=== PATIENT | male | born 1940 | race Caucasian/White ===

== ENCOUNTER 2021-01-14 20:45 | Emergency (ER) | payer OTHER, MEDICARE ==
[2021-01-14 20:56] VITALS: BP 151/90; PULSE 61; TEMP 98.1; BMI 23.8
== END 2021-01-14 21:10 | disposition home or self-care (01) ==
LOC: FER 20:45
DX: S61.412A Laceration without foreign body of left hand, initial encounter (principal); W25.XXXA Contact with sharp glass, initial encounter; Y92.9 Unspecified place or not applicable
CPT/HCPCS: 99283-25

== ENCOUNTER 2023-09-16 12:45 | Emergency (ER) | payer OTHER, MEDICARE ==
[2023-09-16 12:58] VITALS: BP 133/71; PULSE 75; RESP 20; TEMP 97.8; BMI 23.6
[2023-09-16] MEDS ORDERED: DIPHTH,PERTUSS(ACELL),TET 0.5 ML DISP.SYRIN IM ONE (14:58)
[2023-09-16] MEDS: DIPHTH,PERTUSS(ACELL),TET 0.5 ML DISP.SYRIN IM ONE (15:01)
== END 2023-09-16 15:13 | disposition home or self-care (01) ==
LOC: FER 12:45 → SUPCPDRO 12:45 → FER 15:13
PROC: 0HQ1XZZ Repair Face Skin, External Approach (ICD-10-PCS; principal; 2023-09-16)
PROC: 3E0234Z Introduction of Serum, Toxoid and Vaccine into Muscle, Percutaneous Approach (ICD-10-PCS; 2023-09-16)
DX: S01.81XA Laceration without foreign body of other part of head, initial encounter (principal); P12.2 Epicranial subaponeurotic hemorrhage due to birth injury; W18.39XA Other fall on same level, initial encounter; Z23 Encounter for immunization
CPT/HCPCS: 12013; 70450-TC; 90471; 90715; 93005; 99284-25